=== PATIENT | female | born 1975 | race Caucasian/White ===

== ENCOUNTER 2020-12-08 14:02 | Emergency (ER) | payer SELFPAY ==
[2020-12-08 14:12] VITALS: TEMP 98.9; BMI 17.2
[2020-12-08] MEDS ORDERED: SODIUM CHLORIDE 0.9% 500 ML INFUS.BAG IV ONE (15:01)
[2020-12-08] MEDS ORDERED: LORazepam 2 MG/ML SDV VIAL IVPUSH ONE ×2 (15:04→15:57)
[2020-12-08] MEDS ORDERED: LORazepam 2 MG/ML SDV VIAL ONE ×2 (15:27→16:07)
[2020-12-08 15:33] LABS: BASO % 1.4 % (0-2.0); EOS % 2.2 % (0-4.5); HEMATOCRIT 31.6 % (32.4-45.2); HEMOGLOBIN 10.4 GM/dL (10.7-15.3); LYMPH % 38.8 % (8-40); MCHC 33.1 g/dl (32.0-36.0); MEAN CELL VOLUME 90.8 fl (80-96); MEAN PLT VOLUME 8.1 fl (7.5-11.1); MONO % 11.5 % (3.8-10.2); NEUT % 46.1 % (42.8-82.8); PLATELET COUNT 74 10^3/uL (134-434); RBC 3.48 M/mm3 (3.60-5.2); RDW 16.8 % (11.6-15.6); WHITE BLOOD COUNT 2.3 K/mm3 (4.0-10.0)
[2020-12-08 16:04] LABS: CALCIUM 8.9 mg/dL (8.5-10.1)
[2020-12-08 16:05] LABS: ALBUMIN 3.8 g/dl (3.4-5.0)
[2020-12-08 16:08] LABS: CREATININE 0.6 mg/dL (0.55-1.3)
[2020-12-08 16:09] LABS: BILIRUBIN,TOTAL 0.5 mg/dL (0.2-1); TOT PROT 6.7 g/dl (6.4-8.2)
[2020-12-08 16:33] LABS: SYPHILIS W/ RPR CONF NON-REACTIVE (NONREACTIVE)
[2020-12-08 17:01] LABS: HIV INTERPRETATION NEGATIVE (NEGATIVE)
[2020-12-08 17:02] VITALS: BP 100/58; PULSE 98
== END 2020-12-08 17:03 | disposition home or self-care (01) ==
LOC: JER 14:02
PROC: 3E033NZ Introduction of Analgesics, Hypnotics, Sedatives into Peripheral Vein, Percutaneous Approach (ICD-10-PCS; principal; 2020-12-08)
PROC: 3E033GC Introduction of Other Therapeutic Substance into Peripheral Vein, Percutaneous Approach (ICD-10-PCS; 2020-12-08)
DX: F10.230 Alcohol dependence with withdrawal, uncomplicated (principal)
CPT/HCPCS: 36415; 80053; 80307; 82962; 85025; 86780; 87389; 93005; 93010; 99284-25